=== PATIENT | male | born 1980 | race African-American/Black ===

== ENCOUNTER 2016-08-23 07:44 | Inpatient (IN) ==
[2016-08-23] MEDS ORDERED: cefTRIAXone 1,000 MG in SODIUM CHLORIDE 0.9% 100 ML IV STA (08:05)
[2016-08-23] MEDS ORDERED: ONDANSETRON 4 MG/2 ML VIAL IV STA (08:05)
[2016-08-23] MEDS ORDERED: HYDROmorphone 2 MG/1 ML VIAL IV STA (08:05)
[2016-08-23 08:33] LABS: Basophils % 0.3 % (0.0-0.8); Eosinophils % 0.1 % (0.00-10.9); Hematocrit 37.4 VOL% (42.0-52.0); Hemoglobin 12.4 GM/DL (14.0-18.0); Immature Granulocytes % 0.7 %; Immature Granulocytes Absolute 0.11 #; Lymphocytes # 1.2 10*3/uL (1.4-4.0); Lymphocytes % 7.8 % (21.2-54.2); Mean Corpuscular HGB Conc 33.2 GM/DL (32-36); Mean Corpuscular Hemoglobin 28 PG (27-34); Mean Corpuscular Volume 85.4 FL (87-102); Monocytes % 12.9 % (1.7-12.7); Neutrophils # 12.1 10*3/uL (1.4-7.4); Neutrophils % 78.2 % (38.7-73.9); Platelet Count 264 T/CUMM (130-400); Red Blood Count 4.38 MC/CUMM (3.8-5.5); Red Cell Distribution Width 12.8 % (9.3-17.3); White Blood Count 15.5 T/CUMM (4-12)
[2016-08-23] MEDS ORDERED: cefTRIAXone 1,000 MG VIAL ONE (08:56)
[2016-08-23] MEDS ORDERED: ONDANSETRON 4 MG/2 ML VIAL ONE ×3 (08:56→14:28)
[2016-08-23] MEDS ORDERED: HYDROmorphone 2 MG/1 ML VIAL ONE ×2 (08:57→14:28)
[2016-08-23 09:06] LABS: Albumin 2.8 G/DL (3.4-5.0); Band Neutrophils 1 % (0-10); Bilirubin,Total 1.1 MG/DL (0.2-1.0); Calcium 8.6 MG/DL (8.5-10.1); Hypochromasia 1+; Lymphocytes 6 % (20-55); Osmolality,Calculated 262.5 MOS/KG (273-304); Potassium 3.4 MMOL/L (3.5-5.1); Segmented Neutrophils 83 % (50-85); Total Cells Counted 100; Total Protein 6.4 G/DL (6.4-8.3)
[2016-08-23 09:07] LABS: Platelet Estimate Normal
[2016-08-23] MEDS ORDERED: POTASSIUM CHLORIDE 20 MEQ TABLET PO STA (09:16)
--- NOTE | 2016-08-23 09:16 | Emergency Department Note ---
Farrukh Schwartz Brittany, am scribing for, and in the presence of, Kristyn Fuchs DO 08:07. Jef Schwartz Debra, DO, personally performed the services described in this documentation, ascribed by Karla Chadwick in my presence, and it is both accurate and complete 916 . Arrival - Arrival Chief Complaint: Extremity Problem Stated Complaint: L KNEE SWOLLEN/CANT WALK WELL ON LEG ED Nursing Triage Note: Pt c/o left knee pain and swelling started on Wednesday as a "bump" . Pt was seen at [facility] on Wednesday given ABX but the swelling has worsened and the knee is draining. Mode of Arrival: Wheelchair Limitations: No Limitations Source: Patient, RN Notes Reviewed Time Seen by Provider: 08/23/16 07:58 - History of Present Illness HPI Narrative: Patient is a 35 y/o black male presenting to the ED with c/o left knee pain with an onset of 6 days. He reports that he has an abscess that began on his left knee 6 days ago beginning as a small "bump," worsening throughout the week. He then presented to [facility] in [place] where he was placed on Levaquin and Doxycycline. He denies having an I&D performed at that visit. Since his visit left knee pain has worsened and he has began to have erythema, swelling, and warmth to the LLE. His reports that upon waking this morning patient was unable to ambulate secondary to pain. Denies any fever , chills, nausea, or vomiting. No other complaint/pain in the ED at this time. Allergies/Adverse Reactions: Allergies Allergy/AdvReac Type Severity Reaction Status Date / Time No Known Allergies Allergy Verified 08/23/16 07:53 Home Medications: Home Medications Medication Instructions Recorded Confirmed Type No Known Home Medications [No 08/23/16 08/23/16 History Known Home Medications] Review of System - Review of System 12 point system: reviewed and no additional remarkable complaints except as stated - Review of System Constitutional: Absent: chills, fever Gastrointestinal: Absent: nausea, vomiting Musculoskeletal: Present: as per HPI, leg pain Skin: Present: as per HPI, change in color Medical,Surgical,& Family Hx - Social History Smoking Status: Never smoker Exam Vital Signs: Vital Signs Temperature 97.5 F L 08/23/16 07:55 Pulse Rate 102 H 08/23/16 07:55 Respiratory Rate 18 08/23/16 07:55 Blood Pressure 121/75 08/23/16 07:55 O2 Sat by Pulse Oximetry 98 08/23/16 07:49 - General General appearance: alert, in no apparent distress - Head Head exam: Present: atraumatic, normocephalic, normal inspection - Eye Eye exam: Present: normal appearance, PERRL, EOMI - ENT ENT exam: Present: normal exam, normal oropharynx, mucous membranes moist - Neck Neck exam: Present: normal inspection, full ROM, trachea midline - Chest Chest inspection: Present: normal inspection, symmetric chest wall rise - Respiratory Respiratory exam: Present: normal lung sounds bilaterally. Absent: rales, rhonchi, wheezes - Cardiovascular Cardiovascular exam: Present: regular rate, normal rhythm, normal heart sounds. Absent: murmur, rubs, gallop - Abdominal Exam Abdominal exam: Present: soft, normal bowel sounds. Absent: distention, tenderness - Extremities Exam Extremities exam: Present: full ROM, tenderness (tender LLE). Absent: normal inspection (LLE has warmth to touch, erythema, swelling and purulent drainage to area at the left knee) - Back Exam Back exam: Present: normal inspection - Neurological Exam Neurological exam: Present: alert, oriented X3, CN II-XII intact. Absent: motor sensory deficit - Psychiatric Psychiatric exam: Present: normal affect, normal mood - Skin Skin exam: Present: warm, dry, other (LLE has warmth to touch, erythema, purulent drainage to area at the left knee) Results - Labs CBC & BMP: 08/23/16 08:16 08/23/16 08:16 Lab Results: I have reviewed the patients labs Labs: Laboratory Tests 08/23/16 08/23/16 08:16 08:16 WBC 15.5 H RBC 4.38 Hgb 12.4 L Hct 37.4 L MCV 85.4 L Plt Count 264 Neut % (Auto) 78.2 H Lymph % (Auto) 7.8 L [place] % (Auto) 12.9 H Neut # (Auto) 12.1 H Lymph # (Auto) 1.2 L [place]field # (Auto) 2.0 H Total Counted 100 Immature Gran % 0.7 Nucleated RBC % 0.0 Immature Gran # 0.11 Segmented Neutrophils 83 Band Neutrophils 1 Lymphocytes 6 L Monocytes 10 Nucleated RBCs # 0.00 Platelet Estimate Normal Hypochromasia 1+ Sodium 132 L Potassium 3.4 L Chloride 94 L Carbon Dioxide 26 Anion Gap 15.4 H BUN 10 Creatinine 0.90 Glucose 94 Calculated Osmolality 262.5 L Total Bilirubin 1.10 H Albumin 2.8 L Globulin 3.6 H Albumin/Globulin Ratio 0.7 L Laboratory Tests 08/23/16 08/23/16 08:15 09:15 Urine Color Yellow Urine Appearance Slightly hazy Urine pH 6.0 Ur Specific [place] 1.016 Urine Protein 30 Urine Glucose (UA) Negative Urine Ketones 20 Urine Blood Negative Urine Nitrate Negative Urine Bilirubin Negative Urine Urobilinogen 2.0 H Urine Leukocytes Negative Urine RBC 1 Urine WBC 2 Ur Squamous Epith Cells Occasional Urine Mucus Occasional Blood Type O NEGATIVE Antibody Screen Negative - Diagnostic Findings Procedure: Ultrasound: report reviewed by me (Venous Doppler US: No venous abnormality is demonstrated. No evidence of acute DVT on the left.) Disposition Clinical Impression: Infection Case discussed with: patient, patient's family Disposition: Still a Patient Condition: Stable
[2016-08-23] MEDS ORDERED: POTASSIUM CHLORIDE 20 MEQ TABLET PO ONE (09:19)
[2016-08-23 09:26] LABS: Apearance,Urine Slightly Hazy (Clear); Bilirubin,Urine Negative (Negative); Blood, Urine Negative (Negative); Glucose,Urine (UA) Negative (Negative); Ketones,Urine 20 mg/dL (Negative); Mucus,Urine Occasional /LPF (Occasional); Nitrite,Urine Negative (Negative); Protein,Urine 30 MG/DL; RBC,Urine 1 /HPF (0-4); Squamous Epithelial Cell,Urine Occasional /HPF (0-10); Urine Color Yellow (Yellow); Urine Specific Gravity 1.016 (1.001-1.035); WBC,Urine 2 /HPF (0-6)
--- NOTE | 2016-08-23 10:17 | Ultrasound Report ---
History: Swelling, pain, and erythema left leg Date: 08/23/2016 Study: Left lower extremity color flow venous Doppler study Comparison exam: No previous similar study Color Doppler, wave form analysis, and compression analysis of the deep veins of the left lower extremity from the common femoral vein level through the popliteal vein level shows that the veins are readily compressible. There is no abnormal intraluminal material to suggest thrombus. Waveform analysis is unremarkable. Ultrasound images were captured and archived Impression: No venous abnormality is detected. No evidence of acute DVT on the left PROCEDURE INTERPRETED AT [facility] DEPARTMENT OF RADIOLOGY Final Report Signed by: Dr. Jazlyn Sarmiento
[2016-08-23] MEDS ORDERED: DOCUSATE SODIUM 100 MG CAPSULE PO PRN (11:12)
[2016-08-23] MEDS ORDERED: HYDROmorphone 2 MG/1 ML VIAL IV PRN (11:12)
[2016-08-23] MEDS ORDERED: ZALEPLON 5 MG CAPSULE PO PRN (11:12)
[2016-08-23] MEDS ORDERED: PROMETHAZINE 25 MG TABLET PO PRN (11:12)
[2016-08-23] MEDS ORDERED: diphenhydrAMINE CAP 25 MG CAPSULE PO PRN (11:12)
[2016-08-23] MEDS ORDERED: guaiFENesin/DM ER 600-30 MG TABLET PO PRN (11:12)
[2016-08-23] MEDS ORDERED: ONDANSETRON 4 MG/2 ML VIAL IV PRN ×2 (11:12→14:27)
[2016-08-23] MEDS ORDERED: ACETAMINOPHEN 325 MG TABLET PO PRN (11:12)
--- NOTE | 2016-08-23 11:26 | Hospitalist History & Physical ---
Assessment and Plan - Time spent with patient Time spent with patient: Greater than 30 minutes (1) Abscess of left lower leg Status: Acute Assessment and plan: Mr. Deshpande is a 35-year-old -Albanian male with no medical history admitted with a one-week history of worsening necrotic abscess with cellulitis and edema to left knee and lower leg. Patient's case has been discussed with Dr. Holguin and further recommendations to follow. Left lower extremity necrotic abscess/leukocytosis --he has elevated white count and afebrile. Patient is tachycardic. Patient will need surgical intervention today and he has been made n.p.o. The question is whether orthopedics or general surgery will be called. Awaiting results of x-ray to see if bone is involved. We will go ahead and admit and start on broad- spectrum antibiotics, pain and nausea control. Hypokalemia--patient was given some p.o. potassium in the ED. We will continue to monitor this. Hyponatremia--patient will be given some IV fluids and recheck some labs in the morning. Current Visit: Yes (2) Hypokalemia Status: Acute Current Visit: Yes (3) Hyponatremia Status: Acute Current Visit: Yes (4) Leukocytosis Status: Acute Current Visit: Yes (5) Tachycardia Status: Acute Current Visit: Yes History of Present Illness Chief complaint: Left knee pain History of present illness: Mr. Deshpande is a 35 year old male -Albanian male with no medical history presenting to the ED with a one-week history of left knee abscess with swelling patient states Wednesday he had a little bit of knee pain and on Wednesday he had a pimple that he tried to pop. Patient states it worsened from there and Wednesday night he went to [facility] ER where they gave him Levaquin and doxycycline. Patient states that continued to worsen and when he woke up this morning he could not bend his knee or walk due to pain and swelling. Patient denies headache, fevers, shortness of breath, chest pain, abdominal pain, constipation or diarrhea, or right lower extremity swelling. Patient has negative Homans. Patient has an elevated white count 15.5 and his venous Dopplers are negative. He is afebrile and blood pressure stable but he is tachy in the low 100s. Upon exam patient has a very tender and swollen left knee with necrotic abscess distal to the patella. Patient has cellulitis down to the ankle and swelling. Patient has pain with dorsiflexion. After discussion with Dr. Fuchs the ED physician and Dr. Jain, hospitalist, was agreed the patient will be admitted to the hospitalist service with surgical consult. Home Medications Medication Instructions Recorded Confirmed Type No Known Home Medications [No 08/23/16 08/23/16 History Known Home Medications] Allergies Allergy/AdvReac Type Severity Reaction Status Date / Time No Known Allergies Allergy Verified 08/23/16 07:53 Medical,Surgical,& Family Hx - Medical History Endocrine: No history of: Diabetes Mellitus (IDDM) Respiratory: No history of: COPD - Surgical History Cardiac Surgeries: Patient Denies: Cardiac Catheterization Abdominal Surgeries: Patient denies: Abdominal Surgery - Family History Family History: Reports;: Family Cancer - Social History Smoking Status: Never smoker Frequency of Alcohol Use: None Type of Drug Use: None Marital Status: Lives With:: Spouse Functional capacity: independent ambulation Review of systems: A complete 10 system review of systems was obtained and pertinent positives and negatives per HPI Exam - Constitutional Vitals: Period Temp Pulse Resp BP Sys/Osorio Pulse Ox Last 24 Hr 97.5 F-97.5 F 102-102 18-18 121-121/75-75 98 Exam: Constitutional System: No distress. [No] tremulousness. Head: Normocephalic, atraumatic. Ears, Nose and Throat System: No evidence of Otitis or Mastoiditis. No epistaxis or discharge Eyes System: Pupils equal, round, and reactive. Extraocular muscles intact. Neck: Supple, without adenopathy, [No] jugular venous distention. No thyromegaly , neck mass, or prior surgery apparent. Respiratory System: Chest [clear] to auscultation. Cardiovascular System: Heart with [regular] rate and rhythm. [No] murmur. GI System: Abdomen [soft], [non]tender. [Normo]active bowel sounds present. Musculoskeletal System: limbs with moderate pedal edema from distal thigh to left ankle and foot. [Full] distal pulses. Patient has a necrotic abscess distal to the left patella with drainage, edema, and cellulitis to the foot Neurological System: [No discernable] sensory deficit. [No] aphasia Psychiatric System: Conversation is [rational] Results - Labs CBC & BMP: 08/23/16 08:16 08/23/16 08:16 Lab Results: I have reviewed the past 24 hour labs - Diagnostic Findings Procedure: Ultrasound: report reviewed by me (Negative for DVT), X-ray: pending Quality Measures - VTE Contraindication to Pharmacological VTE Prophylaxis: High Risk of Bleeding
--- NOTE | 2016-08-23 12:06 | XRay Report ---
History: Knee swelling and pain. Soft tissue abscess Date: 08/23/2016 Study: Left knee 2 views Comparison exam: No previous There is moderate prepatellar soft tissue swelling, more inferiorly. There is no radiopaque foreign body. There is no fracture, dislocation, or focal destructive osseous abnormality. Impression: No bony abnormality. Prepatellar soft tissue swelling PROCEDURE INTERPRETED AT [facility] DEPARTMENT OF RADIOLOGY Final Report Signed by: Dr. Jazlyn Sarmiento
--- NOTE | 2016-08-23 12:46 | General Surgery Consult Note ---
Assessment and Plan (1) Abscess of left lower leg Status: Acute Assessment and plan: This patient has a necrotizing abscess soft tissue infection of his left knee. There is no effusion on the left knee x-ray but I am concerned about the possibility of joint involvement because he is unable to move his leg and he has significant tenderness with passive range of motion. However, on exam this appears most consistent with a superficial soft tissue infection and this certainly matches with his history as well. He does have hyponatremia which can be a sign of a necrotizing soft tissue infection. Thankfully his creatinine is normal. He denies any drug use or possibility of seeding like a septic joint from endocarditis. He has no heart murmur. He is otherwise healthy and has not had problems like this before. I think he needs to be taken to the operating room for drainage of the abscess with debridement but I have discussed the possibility of joint involvement with Dr. Daniel who agreed to come in and assist me in the operating room with the procedure. He has received antibiotics and appears well resuscitated. I discussed the operation in detail with the patient and his family. I have discussed the risks, benefits , and alternatives of the operation, and the expected outcomes have been reviewed. They would like to proceed with the operation. Current Visit: Yes History of Present Illness Chief complaint: Left knee pain History of present illness: Mr. Deshpande is a 35 year old male with no significant past medical or surgical history who presents to the ER with worsening left knee pain since Wednesday. He noticed a hair follicle that appeared infected at that time and he developed worsening pain over the course of this week. He came in today for worsening of the same symptoms with low-grade fevers at home. He is unable to move his leg secondary to pain at this point. He was worked up in the ER with a ultrasound of his left leg showed no DVT as well as an x-ray of the left knee that showed no fracture or significant effusion. Patient is neurovascularly intact distally. He did have a white blood cell count of 15,000 and he was slightly hyponatremic. His creatinine was normal. Home Medications Medication Instructions Recorded Confirmed Type No Known Home Medications [No 08/23/16 08/23/16 History Known Home Medications] Allergies Allergy/AdvReac Type Severity Reaction Status Date / Time No Known Allergies Allergy Verified 08/23/16 07:53 Medical,Surgical,& Family Hx - Medical History Endocrine: No history of: Diabetes Mellitus (IDDM) Respiratory: No history of: COPD - Surgical History Cardiac Surgeries: Patient Denies: Cardiac Catheterization Abdominal Surgeries: Patient denies: Abdominal Surgery - Family History Family History: Reports;: Family Cancer - Social History Smoking Status: Never smoker Frequency of Alcohol Use: None Type of Drug Use: None - Constitutional Constitutional: Present: as per HPI - EENT Nose, mouth and throat: Present: as per HPI - Cardiovascular Cardiovascular: Present: as per HPI - Respiratory Respiratory: Present: as per HPI - Gastrointestinal Gastrointestinal: Present: as per HPI - Genitourinary Genitourinary: Present: as per HPI - Musculoskeletal Musculoskeletal: Present: as per HPI - Neurological Neurological: Present: as per HPI - Endocrine Endocrine: Present: as per HPI Hematologic/Lymphatic: Present: as per HPI Exam - Constitutional General appearance: no acute distress, over weight - Head Head exam: Present: normal inspection, normocephalic - Eye Eye exam: Present: EOMI Pupils: Present: BRAYDEN - ENT ENT exam: Present: normal exam Mouth exam: Present: normal external inspection, normal voice - Neck Neck exam: Present: normal inspection, trachea midline - Respiratory Respiratory exam: Present: clear to auscultation bilaterally. Absent: accessory muscle use, chest wall tenderness - Cardiovascular Cardiovascular exam: Present: RRR. Absent: systolic murmur, tachycardia - GI/Abdominal GI/Abdominal exam: Present: normal bowel sounds, soft. Absent: tenderness, rebound - Extremities Exam Extremities exam: Present: normal capillary refill, other (There is some gangrenous tissue on the skin over the left knee with a small area of some drainage that looks purulent over the kneecap. The patient's leg is significantly swollen and he is unable to bend his knee. He has significant tenderness with passive range of motion attempts. His left foot is well- perfused and neurovascularly intact. He has palpable pulses. There is significant erythema extending above and below the left knee.) - Back Exam Back exam: Present: normal inspection - Neurological Exam Neurological exam: Present: alert, oriented X3 Speech: Present: normal - Skin Skin exam: Present: normal color, warm Quality Measures - VTE Contraindication to Pharmacological VTE Prophylaxis: High Risk of Bleeding Results - Labs CBC & BMP: 08/23/16 08:16 08/23/16 08:16
[2016-08-23] MEDS ORDERED: METOCLOPRAMIDE 10 MG/2 ML VIAL IV ONE (13:28)
[2016-08-23] MEDS ORDERED: FAMOTIDINE 20 MG/2 ML VIAL IV ONE ×2 (13:29→13:31)
[2016-08-23] MEDS ORDERED: METOCLOPRAMIDE 10 MG/2 ML VIAL ONE (13:31)
--- NOTE | 2016-08-23 13:46 | Orthopedic Consult Note ---
History of Present Illness Chief complaint: Soft tissue abscess left lower leg/knee History of present illness: Mr. Deshpande is a 35 year old male who is being admitted for a abscess left lower leg left knee region. He has a history of a hair follicle that became infected about a week ago he did not seek medical attention until A[place] night. He was seen in [place]. Likely started on unknown antibiotic he had persistence of pain swelling and now erythema extending distally down the calf and more proximal to the knee. Dr. Meyer, general surgeon, planning on formal I&D of the subcutaneous abscess and asked me to evaluate regarding his left knee. Exam: Well-developed nourished male he has a draining pustule over the anterior proximal lower leg distal knee region is centered anteriorly over the distal aspect of the patella tendon appears to be subcutaneous only there is some seropurulent blistering no swelling proximal to the kneecap. The prepatellar bursa is not swollen or involved and he has no effusion. He will tolerate an active range of motion of about 40. There is erythema extending down the lateral mid calf and proximal to the knee. X-rays AP and lateral left knee I see no bony involvement no foreign body Impression: Subcutaneous abscess left lower leg/knee Plan: I agree with formal I&D and believe the infectious process to be subcutaneous. Clinically it does not appear to involve the prepatellar bursa or knee joint. Dr. Meyer's plan is to I&D and leave open, to heal secondarily. I agree. Any problems questions concerns feel free to let me know. Home Medications Medication Instructions Recorded Confirmed Type No Known Home Medications [No 08/23/16 08/23/16 History Known Home Medications] Allergies Allergy/AdvReac Type Severity Reaction Status Date / Time No Known Allergies Allergy Verified 08/23/16 07:53 Medical,Surgical,& Family Hx - Medical History Endocrine: No history of: Diabetes Mellitus (IDDM) Respiratory: No history of: COPD - Surgical History Cardiac Surgeries: Patient Denies: Cardiac Catheterization Abdominal Surgeries: Patient denies: Abdominal Surgery - Family History Family History: Reports;: Family Cancer - Social History Smoking Status: Never smoker Frequency of Alcohol Use: None Type of Drug Use: None Exam - Constitutional Vitals: Period Temp Pulse Resp BP Sys/Osorio Pulse Ox Last 24 Hr 98.1 F 85 18 128/84 100 Results - Labs CBC & BMP: 04/23/17 08:16 08/23/16 08:16
[2016-08-23] MEDS ORDERED: BUPIVACAINE MPF 0.25% /EPI 30 ML VIAL ONE (13:59)
[2016-08-23] MEDS ORDERED: PROPOFOL 200 MG/20 ML VIAL IV ONE (14:18)
[2016-08-23] MEDS ORDERED: fentaNYL 100 MCG/2 ML VIAL ONE (14:18)
[2016-08-23] MEDS ORDERED: SEVOFLURANE 1 UNIT/15 MINUTE INH ONE (14:18)
[2016-08-23] MEDS ORDERED: MIDAZOLAM 2 MG/2 ML VIAL ONE (14:18)
[2016-08-23] MEDS ORDERED: LACTATED RINGERS 1,000 ML IV ONE (14:18)
--- NOTE | 2016-08-23 14:25 | Anesthesia Post-Op ---
Anesthesia Post OP - Post Ansesthetic Evaluation Patient seen in post op: Yes Resp: within normal limits CV: within normal limits Mental: within normal limits Temp: within normal limits [id number]: within normal limits Nausea and Vomiting: within normal limits Pain: within normal limits
[2016-08-23] MEDS ORDERED: LACTATED RINGERS 1,000 ML IV SCH (14:30)
[2016-08-23] MEDS: HYDROmorphone 2 MG/1 ML VIAL IV PRN ×3 (14:33→14:47)
[2016-08-23] MEDS: PIPERACILLIN/TAZOBACTAM 3,375 MG in SODIUM CHLORIDE 0.9% 100 ML IV SCH ×2 (15:38→18:32)
[2016-08-23] MEDS: VANCOMYCIN INJ 1,000 MG in SODIUM CHLORIDE 0.9% 250 ML IV SCH ×2 (15:38→22:29)
[2016-08-23] MEDS: SODIUM CHLORIDE 0.9% 1,000 ML IV SCH (15:57)
[2016-08-23] MEDS: PANTOPRAZOLE 40 MG TABLET PO SCH (15:58)
--- NOTE | 2016-08-23 22:11 | Operative Note ---
Date of procedure: 08/23/16 Pre-op diagnosis: Large left knee abscess Post-op diagnosis: same Procedure: Preoperative diagnosis Large left knee abscess Postoperative diagnosis Same Procedures performed Incision and drainage of necrotic left knee abscess Excisional debridement of necrotic skin measuring 40 cm Findings Necrotic skin was removed measuring 4 cm with a scalpel. A large left knee abscess was drained with a large amount of purulent drainage removed. Cultures were sent to the lab. The wound was irrigated and packed. Complications None apparent Specimen Cultures Anesthesia General LMA Blood loss Minimal Indications Large left knee abscess Description of procedure The patient was taken to the operating room and transferred to the operating table in the supine position. Pressure points were padded and SCDs were placed to the right lower extremity. Left knee was prepped with Betadine and draped sterilely. The patient received therapeutic antibiotics in the ER. Timeout was performed. Excisional debridement of necrotic skin was performed and 40 cm of necrotic skin was removed with a scalpel. An incision was then made over the area of fluctuance and a large left knee abscess was encountered. All the loculations of the abscess were broken up and a large amount of pus was removed. Cultures were sent to the lab from this collection. This does not appear to involve the deeper tissues and the knee was superficial to the joint and all the bony structures in the prepatellar bursa. The wound was copiously irrigated and packed with Dakin's wet-to-dry dressing and the leg was wrapped with cast padding and Coban. The patient was awakened from anesthesia and transferred to recovery. Postoperative plan Continue wound care and antibiotics Anesthesia: DANIELA Surgeon / Physician: Jose Meyer Estimated blood loss: minimal Specimens: other (cultures) Condition: stable Disposition: PACU Results - Labs CBC & BMP: 08/23/16 08:16 08/23/16 08:16 Discharge Plan - Discharge Medications No Action No Known Home Medications [No Known Home Medications] - Follow Up or Referral - Forms/Instructions
[2016-08-24 02:08] LABS: Basophils # 0.1 10*3/uL (0.0-0.2); Basophils % 0.5 % (0.0-0.8); Eosinophils # 0.1 10*3/uL (0.0-0.87); Eosinophils % 0.5 % (0.00-10.9); Hematocrit 29.6 VOL% (42.0-52.0); Hemoglobin 9.5 GM/DL (14.0-18.0); Immature Granulocytes % 0.6 %; Immature Granulocytes Absolute 0.08 #; Lymphocytes # 1.7 10*3/uL (1.4-4.0); Lymphocytes % 13.5 % (21.2-54.2); Mean Corpuscular HGB Conc 32.1 GM/DL (32-36); Mean Corpuscular Hemoglobin 28 PG (27-34); Mean Corpuscular Volume 85.8 FL (87-102); Mean Platelet Volume 10.7 FL (9.6-12.0); Monocytes # 1.5 10*3/uL (0.11-0.8); Monocytes % 11.8 % (1.7-12.7); Neutrophils # 9.4 10*3/uL (1.4-7.4); Neutrophils % 73.1 % (38.7-73.9); Platelet Count 281 T/CUMM (130-400); Red Blood Count 3.45 MC/CUMM (3.8-5.5); Red Cell Distribution Width 13.1 % (9.3-17.3); White Blood Count 12.9 T/CUMM (4-12)
[2016-08-24 02:32] LABS: Calcium 7.8 MG/DL (8.5-10.1); Osmolality,Calculated 263.4 MOS/KG (273-304); Potassium 3.6 MMOL/L (3.5-5.1)
[2016-08-24] MEDS: VANCOMYCIN INJ 1,000 MG in SODIUM CHLORIDE 0.9% 250 ML IV SCH ×3 (03:54→18:42)
[2016-08-24] MEDS: PIPERACILLIN/TAZOBACTAM 3,375 MG in SODIUM CHLORIDE 0.9% 100 ML IV SCH ×3 (05:30→20:45)
[2016-08-24] MEDS: SODIUM CHLORIDE 0.9% 1,000 ML IV SCH ×4 (06:42→20:47)
[2016-08-24] MEDS: PANTOPRAZOLE 40 MG TABLET PO SCH (09:41)
--- NOTE | 2016-08-24 11:36 | Event Note ---
General Surgery Progress Note Chief complaint This patient is a 35-year-old man admitted with a left knee infection treated with incision and drainage on 08/23/2016 Interval history No events overnight. Pain is well controlled. Cultures have grown gram- positive cocci. Patient is on vancomycin. Physical exam The patient's left knee wound is much improved with no further purulent drainage. He tolerated the dressing change well. He was repacked. Labs Gram-positive cocci and wound culture Imaging None new Assessment and plan Continue wound care and antibiotics Follow cultures Pain control and wound care for another day and discharge planning can be started for tomorrow.
--- NOTE | 2016-08-24 12:16 | Hospitalist Progress Note ---
Assessment and Plan - Time spent with patient Time spent with patient: Greater than 30 minutes (1) Abscess of left lower leg Status: Acute Assessment and plan: Continue broad-spectrum antibiotics until wound culture is finalized. Current Visit: Yes Hospitalist: Subjective Interval history: Patient feels much better. Wound culture shows gram-positive cocci. Continue antibiotics. Exam - Constitutional Vitals: Period Temp Pulse Resp BP Sys/Osorio Pulse Ox Last 24 Hr 98 F-98.8 F 73-112 15-20 102-149/65-102 95-100 General appearance: no acute distress - Head Head exam: Present: normocephalic, atraumatic - Eye Eye exam: Present: EOMI Pupils: Present: BRAYDEN - ENT ENT exam: Present: normal exam - Neck Neck exam: Present: normal inspection - Respiratory Respiratory exam: Present: clear to auscultation bilaterally. Absent: rhonchi, wheezes - Cardiovascular Cardiovascular exam: Present: regular rate and rhythm. Absent: gallop, rubs, systolic murmur - GI/Abdominal GI/Abdominal exam: Present: normal bowel sounds, soft. Absent: distended, firm , guarding, tenderness, rebound - Extremities Exam Extremities exam: Present: normal inspection. Absent: calf tenderness, edema Results - Labs CBC & BMP: 08/24/16 01:33 08/24/16 01:33 Lab Results: I have reviewed the past 24 hour labs Quality Measures - VTE Contraindication to Pharmacological VTE Prophylaxis: High Risk of Bleeding
[2016-08-25] MEDS: VANCOMYCIN INJ 1,000 MG in SODIUM CHLORIDE 0.9% 250 ML IV SCH ×2 (04:25→11:59)
[2016-08-25] MEDS: SODIUM CHLORIDE 0.9% 1,000 ML IV SCH ×2 (04:27→11:45)
[2016-08-25 04:30] LABS: Basophils # 0.1 10*3/uL (0.0-0.2); Basophils % 0.6 % (0.0-0.8); Eosinophils # 0.2 10*3/uL (0.0-0.87); Eosinophils % 1.6 % (0.00-10.9); Hematocrit 29.1 VOL% (42.0-52.0); Hemoglobin 9.8 GM/DL (14.0-18.0); Immature Granulocytes Absolute 0.11 #; Lymphocytes # 1.9 10*3/uL (1.4-4.0); Lymphocytes % 17.6 % (21.2-54.2); Mean Corpuscular HGB Conc 33.7 GM/DL (32-36); Mean Corpuscular Hemoglobin 28 PG (27-34); Mean Corpuscular Volume 84.3 FL (87-102); Mean Platelet Volume 10.8 FL (9.6-12.0); Monocytes # 1.2 10*3/uL (0.11-0.8); Monocytes % 11.4 % (1.7-12.7); Neutrophils # 7.3 10*3/uL (1.4-7.4); Neutrophils % 67.8 % (38.7-73.9); Platelet Count 310 T/CUMM (130-400); Red Blood Count 3.45 MC/CUMM (3.8-5.5); Red Cell Distribution Width 13.4 % (9.3-17.3); White Blood Count 10.8 T/CUMM (4-12)
[2016-08-25 05:28] LABS: Osmolality,Calculated 269.8 MOS/KG (273-304); Potassium 3.8 MMOL/L (3.5-5.1)
[2016-08-25] MEDS: PIPERACILLIN/TAZOBACTAM 3,375 MG in SODIUM CHLORIDE 0.9% 100 ML IV SCH ×2 (05:32→14:39)
[2016-08-25] MEDS ORDERED: SODIUM HYPOCHLORITE 0.25% IRRIG 473 ML BOTTLE TOP SCH (09:00)
--- NOTE | 2016-08-25 09:20 | Event Note ---
General Surgery Progress Note Chief complaint This patient is a 35-year-old man admitted with a left knee infection treated with incision and drainage on 08/23/2016 Interval history No events overnight. Pain is well controlled. No fevers. Physical exam The patient's left knee wound is much improved with no further purulent drainage. He tolerated the dressing change well. He was repacked. Labs Gram-positive cocci and wound culture Imaging None new Assessment and plan The patient can be discharged home today with home health. He needs a prescription for Bactrim double strength twice daily for the next week. I will see him back in 1 week. Wound care with daily dressing changes using wet-to-dry dressing
[2016-08-25] MEDS: PANTOPRAZOLE 40 MG TABLET PO SCH (09:22)
[2016-08-25 12:11] VITALS: BP 140/86
--- NOTE | 2016-08-25 13:15 | Discharge Summary ---
Hospital Course - Hospital Course Hospital Course: Mr. Deshpande presented with left lower leg cellulitis. This was evaluated by surgery and patient had an incision and drainage of the lesion. Wound culture was taken. Patient was evaluated by orthopedics and the wound was determined to be superficial. Patient was initiated on vancomycin and culture results returned Staphylococcus sensitive to Bactrim DS. Patient will continue treatment as an outpatient. By discharge he had met maximum benefit of hospitalization. I spent 37 minutes coordinating this discharge. - Time spent with patient Time with patient DS: Greater than 30 minutes Diagnosis - Discharge Diagnosis (1) Abscess of left lower leg Status: Acute Specialty Discharge - Follow Up or Referrals Follow up with: Jose Osborne MD [Physician] - 09/02/16 2:30 pm Discharge Plan - Discharge Data Disposition: Disch To Home/Self Care Condition at Discharge: Stable Discharge Diet: advance to your usual diet Activity: resume usual activities as tolerated Hygiene: no restrictions - Discharge Medications New Sulfameth/Trimeth 800-160 Tab [Bactrim DS Tab] 1 tablet PO BID #14 tablet - Follow Up or Referral Follow Up: Jose Osborne MD [Physician] - 09/02/16 2:30 pm - Forms/Instructions Instructions: Abscess (GEN) Exam - Constitutional Vitals: Period Temp Pulse Resp BP Sys/Osorio Pulse Ox Last 24 Hr 97.2 F-99.0 F 74-88 18-20 110-145/68-92 97-100 General appearance: normal weight, no acute distress - Head Head exam: Present: normal inspection, normocephalic, atraumatic - Eye Eye exam: Present: EOMI Pupils: Present: BRAYDEN - ENT ENT exam: Present: normal exam - Neck Neck exam: Present: normal inspection - Respiratory Respiratory exam: Present: clear to auscultation bilaterally. Absent: accessory muscle use, prolonged expiratory phase, wheezes - Cardiovascular Cardiovascular exam: Present: regular rate and rhythm. Absent: bradycardia, irregular rhythm, systolic murmur - GI/Abdominal GI/Abdominal exam: Present: normal bowel sounds. Absent: ascites, distended, hypoactive bowel sounds, tenderness - Extremities Exam Extremities exam: Present: normal inspection Discharge Results Labs on day of discharge: Labs from last 24 hours 08/25/16 08/25/16 03:41 03:41 WBC 10.8 RBC 3.45 L Hgb 9.8 L Hct 29.1 L MCV 84.3 L MCH 28 MCHC 33.7 RDW 13.4 Plt Count 310 MPV 10.8 Neut % (Auto) 67.8 Lymph % (Auto) 17.6 L [place] % (Auto) 11.4 Eos % (Auto) 1.6 Baso % (Auto) 0.6 Neut # (Auto) 7.3 Lymph # (Auto) 1.9 [place] # (Auto) 1.2 H Eos # (Auto) 0.2 Baso # (Auto) 0.1 Immature Gran % 1.0 Nucleated RBC % 0.0 Immature Gran # 0.11 Nucleated RBCs # 0.00 Sodium 137 Potassium 3.8 Chloride 102 Carbon Dioxide 28 Anion Gap 10.8 BUN 7 Creatinine 0.80 GFR Calculation 141 BUN/Creatinine Ratio 8.00 Glucose 85 Calculated Osmolality 269.8 L Calcium 8.0 L DS: Provider Date of admission: 08/23/16 10:43 Primary care physician: . No PCP Attending physician on admission: Yoselin Jain MD Consults: 08/23/16 11:20 Consult to Physician [CONS] Routine Comment: left knee necrotic abscess Consulting Provider: Jose Osborne Consulting Provider Notified: Yes When should Consulting Provider be notified: Now Person Notified: vinayak called with room number Date Notified: 08/24/16 Time Notified: 08:30 Consult Notification Comment: DR OSBORNE ALREADY SAW PATIENT 08/23/16 11:57 Consult to Pharmacy [CONS] Routine Reason for Pharmacy Consult: Adjust Meds Renal Funct 08/23/16 12:44 Consult to Anesthesiology [CONS] Routine Consulting Provider: Reason for Anesthesiology: Pre-op Clearance Discharging clinician: Yoselin Jain MD Expected date of discharge: 08/25/16
== END 2016-08-25 14:50 | disposition home health service (06) | DRG 571 ==
LOC: N.ED 07:44 → N.EDINP 10:43 → N.3E 11:43
PROVIDERS: ADMIT Internal Medicine; ATTEND Internal Medicine